=== PATIENT | female | born 1950 | race Caucasian/White ===

== ENCOUNTER → 2020-07-24 | Outpatient (CLI) | payer MEDICARE, OTHER | LOC: KOH-I 11:30 | DX: R31.9 Hematuria, unspecified (principal); R10.9 Unspecified abdominal pain; N13.2 Hydronephrosis with renal and ureteral calculous obstruction; N28.9 Disorder of kidney and ureter, unspecified | CPT/HCPCS: 74176; 87086 ==

== ENCOUNTER → 2020-07-26 | Outpatient (CLI) | payer MEDICARE, OTHER | LOC: CT 12:03 | DX: N28.89 Other specified disorders of kidney and ureter (principal) | CPT/HCPCS: 36415; 74170; 82565; Q9965 ==

== ENCOUNTER 2021-01-21 16:32 | Inpatient (IN) | payer MEDICARE, OTHER ==
[~2021-01-21] VITALS: Ht 160 cm; Wt 72.6 kg
[2021-01-21 18:05] LABS: HEMOGLOBIN 13.4 gm/dl (12.3-15.3); RED BLOOD COUNT 4.83 M/UL (4.00-5.10); WHITE BLOOD COUNT 10.2 K/UL (4.5-11.0)
[2021-01-22 04:39] LABS: HEMOGLOBIN 12.8 gm/dl (12.3-15.3); RED BLOOD COUNT 4.74 M/UL (4.00-5.10)
[2021-01-22] MEDS ORDERED: METFORMIN HCL500 MG PO ×2 (08:35→08:36)
[2021-01-22] MEDS ORDERED: SYNTHROID75 MCG PO (08:37)
[2021-01-22] MEDS ORDERED: NORVASC5 MG PO (08:37)
[2021-01-22] MEDS ORDERED: CRESTOR20 MG PO (08:37)
[2021-01-22] MEDS ORDERED: LISINOPRIL-HCT1 EAC1 PO (08:37)
[2021-01-22] MEDS ORDERED: LOPRESSOR 50 MG50 MG PO (08:38)
[2021-01-22] MEDS ORDERED: VITAMIN C 500500 MG PO (09:38)
[2021-01-22] MEDS ORDERED: VITAMIN D350 MC3 PO (09:38)
[2021-01-23 04:53] LABS: HEMOGLOBIN 12.8 gm/dl (12.3-15.3); RED BLOOD COUNT 4.44 M/UL (4.00-5.10)
[2021-01-23 04:58] LABS: WHITE BLOOD COUNT 13.1 K/UL (4.5-11.0)
[2021-01-24 05:31] LABS: HEMOGLOBIN 12.2 gm/dl (12.3-15.3); RED BLOOD COUNT 4.26 M/UL (4.00-5.10); WHITE BLOOD COUNT 13.5 K/UL (4.5-11.0)
[2021-01-25 05:52] LABS: HEMOGLOBIN 12.2 gm/dl (12.3-15.3); RED BLOOD COUNT 4.29 M/UL (4.00-5.10); WHITE BLOOD COUNT 11.3 K/UL (4.5-11.0)
[2021-01-25] MEDS ORDERED: ELIQUIS 2.5 MG2.5 MG PO (08:07)
[2021-01-25] MEDS ORDERED: DEXAMETHASONE6 MG PO (08:07)
== END 2021-01-25 16:01 | disposition home or self-care (01) | DRG 177 ==
LOC: ER1 16:32 → MED SURG 4 18:46 → CDU 18:46 → MED SURG 4 01-22 10:24
PROVIDERS: Internal Medicine Infectious Disease; Physician Assistant; ADMIT Internal Medicine
PROC: 8E0ZXY6 Isolation (ICD-10-PCS; principal; 2021-01-21)
PROC: XW033E5 Introduction of Remdesivir Anti-infective into Peripheral Vein, Percutaneous Approach, New Technology Group 5 (ICD-10-PCS; 2021-01-21)
PROC: 3E0333Z Introduction of Anti-inflammatory into Peripheral Vein, Percutaneous Approach (ICD-10-PCS; 2021-01-21)
DX: U07.1 COVID-19 (principal); J12.82 Pneumonia due to coronavirus disease 2019; J96.01 Acute respiratory failure with hypoxia; N17.0 Acute kidney failure with tubular necrosis; I12.9 Hypertensive chronic kidney disease with stage 1 through stage 4 chronic kidney disease, or unspecified chronic kidney disease; E86.0 Dehydration; E78.5 Hyperlipidemia, unspecified; N18.9 Chronic kidney disease, unspecified; E11.9 Type 2 diabetes mellitus without complications; Z85.3 Personal history of malignant neoplasm of breast; Z88.5 Allergy status to narcotic agent
CPT/HCPCS: 36415; 36600; 71045; 80048; 80053; 80076; 82728; 82803; 82962; 83036; 83615; 83735; 84443; 85025; 85027; 85379; 86140; 94760; 96374; 97116-GP-CQ; 97162; 97530; 99284; J0696; J1100; J1650; J7030; U0002

== ENCOUNTER 2021-12-16 10:28 | Emergency (ER) | payer MEDICARE, OTHER ==
[~2021-12-16 10:28] MED LIST: CRESTOR20 MG PO; DEXAMETHASONE6 MG PO; ELIQUIS 2.5 MG2.5 MG PO; LISINOPRIL-HCT1 EAC1 PO; LOPRESSOR 50 MG50 MG PO; METFORMIN HCL500 MG PO; NORVASC5 MG PO; SYNTHROID75 MCG PO; VITAMIN C 500500 MG PO; VITAMIN D350 MC3 PO
[2021-12-16 11:09] LABS: HEMOGLOBIN 13.1 gm/dl (12.3-15.3); RED BLOOD COUNT 4.55 M/UL (4.00-5.10); WHITE BLOOD COUNT 9.8 K/UL (4.5-11.0)
[2021-12-16] MEDS ORDERED: ANTIVERT25 M1 PO (13:47)
[2021-12-16] MEDS ORDERED: ZOFRAN ODT 4 MG4 MG GT (13:47)
== END 2021-12-16 14:21 | disposition home or self-care (01) ==
LOC: ER1 10:28
PROVIDERS: Family Medicine
DX: H81.10 Benign paroxysmal vertigo, unspecified ear (principal); I10 Essential (primary) hypertension; E11.9 Type 2 diabetes mellitus without complications; Z88.5 Allergy status to narcotic agent; Z79.84 Long term (current) use of oral hypoglycemic drugs
CPT/HCPCS: 70450; 80053; 81001; 82550; 82553; 83690; 84484; 85025; 93005; 96374; 96375; 99284; J2270; J2405